=== PATIENT | male | born 1945 | race Caucasian/White ===

== ENCOUNTER 2018-10-22 05:01 | Emergency (ER) | payer OTHER ==
[2018-10-22 05:54] LABS: Urine Bacteria <20 /HPF (NONE SEEN); Urine Culture Reflex Order NOT NEEDED; Urine RBC NONE SEEN /HPF (NONE SEEN)
[2018-10-22 06:06] LABS: Urine Blood TRACE (NEG); Urine Glucose NEGATIVE (NEG); Urine Protein NEGATIVE (NEG)
--- NOTE | 2018-10-22 06:22 | ER ---
Nurse's Notes [facility] Name: Ty Morocho Age: 72 yrs Sex: Male : 1945 Arrival Date: 10/22/2018 Time: 05:02 Bed 6 Private MD: Ronald Briones T Diagnosis: Sciatica, left side;Essential (primary) hypertension;Disorder of prostate, unspecified Presentation: 10/22 05:17 Presenting complaint: Patient states: L leg pain x 3 days. Denies injury. Reports the aa1 pain also radiates into his L testicle when he urinates. Transition of care: patient was not received from another setting of care. Onset of symptoms was October 19, 2018. Risk Assessment: Do you want to hurt yourself or someone else? Patient reports no desire to harm self or others. Initial Sepsis Screen: Does the patient meet any 2 criteria? No. Patient's initial sepsis screen is negative. Does the patient have a suspected source of infection? No. Patient's initial sepsis screen is negative. Care prior to arrival: None. 05:17 Method Of Arrival: Ambulatory aa1 05:17 Acuity: DEREK 3 aa1 Triage Assessment: 05:20 General: Appears in no apparent distress. comfortable, Behavior is calm, cooperative, aa1 appropriate for age. Historical: - Allergies: 05:20 No Known Allergies; aa1 - Home Meds: 05:20 Flomax Oral [Active]; valsartan oral oral [Active]; carvedilol oral oral [Active]; aa1 - PMHx: 05:20 High Cholesterol; Hypertension; prostate cancer; aa1 - PSHx: 05:20 foot sx; aa1 - Immunization history:: Flu vaccine is not up to date. - Social history:: Smoking status: Patient/guardian denies using tobacco. - Ebola Screening: : No symptoms or risks identified at this time. Screenin:17 Abuse screen: Denies threats or abuse. Denies injuries from another. Nutritional rr5 screening: No deficits noted. Tuberculosis screening: No symptoms or risk factors identified. 06:52 Fall Risk None identified. jd3 Assessment: 05:17 General: Appears in no apparent distress. uncomfortable, Behavior is calm, cooperative, rr5 appropriate for age. Pain: Complains of pain in left leg Pain radiates to left testicle Pain currently is 1 out of 10 on a pain scale. Quality of pain is described as sharp, Pain began 2-3 days ago. Neuro: Level of Consciousness is awake, alert, obeys commands, Oriented to person, place, time, situation, Appropriate for age. 05:17 Cardiovascular: Capillary refill < 3 seconds Patient's skin is warm and dry. rr5 Respiratory: Airway is patent Respiratory effort is even, unlabored, Respiratory pattern is regular, symmetrical. GI: No signs and/or symptoms were reported involving the gastrointestinal system. : Reports pain in left testicle, with urination. EENT: No signs and/or symptoms were reported regarding the EENT system. Derm: Skin temperature is warm. Musculoskeletal: Capillary refill < 3 seconds, Range of motion: intact in all extremities. 05:17 Musculoskeletal: Reports pain in left leg Pain is 1 out of 10 on a pain scale. rr5 06:48 Reassessment: Patient appears in no apparent distress at this time. Patient and/or jd3 family updated on plan of care and expected duration. Pain level reassessed. Patient is alert, oriented x 3, equal unlabored respirations, skin warm/dry/pink. reported understanding of discharge instructions while doctor was at bedside. left before signing for discharge. even and steady gait upon discharge. Vital Signs: 05:20 BP 191 / 103; Pulse 71; Resp 18; Temp 98.2; Pulse Ox 98% on R/A; Weight 97.52 kg; aa1 Height 5 ft. 10 in. (177.80 cm); Pain 1/10; 05:42 BP 175 / 87; Pulse 66; Resp 17; Pulse Ox 99% on R/A; rr5 06:51 BP 155 / 78; Pulse 59; Resp 16 S; Pulse Ox 98% on R/A; Pain 0/10; jd3 05:20 Body Mass Index 30.85 (97.52 kg, 177.80 cm) aa1 ED Course: 05:02 Patient arrived in ED. ds1 05:02 Ronald Briones MD is Private Physician. ds1 05:16 Sage Irene RN is Primary Nurse. rr5 05:17 Patient has correct armband on for positive identification. Bed in low position. Call rr5 light in reach. Pulse ox on. NIBP on. 05:19 Triage completed. aa1 05:20 Arm band placed on right wrist. aa1 05:22 Flo Curran MD is Attending Physician. 05:39 Urine collected: clean catch specimen, clear, Amount Voided: 80mL. rr5 06:50 No provider procedures requiring assistance completed. Patient did not have IV access jd3 during this emergency room visit. Administered Medications: No medications were administered Outcome: 06:21 Discharge ordered by MD. 06:51 Discharged to home ambulatory, with family. jd3 06:51 Condition: stable 06:51 Discharge instructions given to patient, family, Instructed on discharge instructions, follow up and referral plans. Demonstrated understanding of instructions, follow-up care. 06:52 Patient left the ED. jd3 Signatures: Tammie Diaz RN RN aa1 Naina Colón ds1 Flo Curran MD MD gs Davies, Jonathon, RN RN jd3 Sage Irene RN RN rr5
--- NOTE | 2018-10-22 06:22 | EDPHYS ---
Physician Documentation [facility] Name: Ty Morocho Age: 72 yrs Sex: Male : 1945 Arrival Date: 10/22/2018 Time: 05:02 Bed 6 Private MD: Ronald Briones T ED Physician Flo Curran HPI: 10/22 06:15 This 72 yrs old Male presents to ER via Ambulatory with complaints of High gs Blood Pressure, Leg Pain. 06:15 The patient presents with pain. The complaints affect the left hip. Onset: The gs symptoms/episode began/occurred 2 day(s) ago. Modifying factors: the symptoms are aggravated by movement. Associated signs and symptoms: Pertinent negatives calf tenderness, numbness, rash, swelling, weakness. Severity of symptoms: At their worst the symptoms were severe, in the emergency department the symptoms have resolved, have improved, markedly. The patient has not experienced similar symptoms in the past. Historical: - Allergies: 05:20 No Known Allergies; aa1 - Home Meds: 05:20 Flomax Oral [Active]; valsartan oral oral [Active]; carvedilol oral oral [Active]; aa1 - PMHx: 05:20 High Cholesterol; Hypertension; prostate cancer; aa1 - PSHx: 05:20 foot sx; aa1 - Immunization history:: Flu vaccine is not up to date. - Social history:: Smoking status: Patient/guardian denies using tobacco. - Ebola Screening: : No symptoms or risks identified at this time. ROS: 06:15 : Positive for urinary frequency, improved with flomax usage. gs 06:15 All other systems are negative. Exam: 06:15 Head/Face: Normocephalic, atraumatic. Eyes: Pupils equal round and reactive to light, gs extra-ocular motions intact. Lids and lashes normal. Conjunctiva and sclera are non-icteric and not injected. Cornea within normal limits. Periorbital areas with no swelling, redness, or edema. ENT: Nares patent. No nasal discharge, no septal abnormalities noted. Tympanic membranes are normal and external auditory canals are clear. Oropharynx with no redness, swelling, or masses, exudates, or evidence of obstruction, uvula midline. Mucous membranes moist. Neck: Trachea midline, no thyromegaly or masses palpated, and no cervical lymphadenopathy. Supple, full range of motion without nuchal rigidity, or vertebral point tenderness. No Meningismus. Chest/axilla: Normal chest wall appearance and motion. Nontender with no deformity. No lesions are appreciated. Cardiovascular: Regular rate and rhythm with a normal S1 and S2. No gallops, murmurs, or rubs. Normal PMI, no JVD. No pulse deficits. Respiratory: Lungs have equal breath sounds bilaterally, clear to auscultation and percussion. No rales, rhonchi or wheezes noted. No increased work of breathing, no retractions or nasal flaring. Abdomen/GI: Soft, non-tender, with normal bowel sounds. No distension or tympany. No guarding or rebound. No evidence of tenderness throughout. Back: No spinal tenderness. No costovertebral tenderness. Full range of motion. Skin: Warm, dry with normal turgor. Normal color with no rashes, no lesions, and no evidence of cellulitis. MS/ Extremity: Pulses equal, no cyanosis. Neurovascular intact. Full, normal range of motion. Neuro: Awake and alert, GCS 15, oriented to person, place, time, and situation. Cranial nerves II-XII grossly intact. Motor strength 5/5 in all extremities. Sensory grossly intact. Cerebellar exam normal. Normal gait. 06:15 Constitutional: The patient appears alert, awake. Vital Signs: 05:20 BP 191 / 103; Pulse 71; Resp 18; Temp 98.2; Pulse Ox 98% on R/A; Weight 97.52 kg; aa1 Height 5 ft. 10 in. (177.80 cm); Pain 1/10; 05:42 BP 175 / 87; Pulse 66; Resp 17; Pulse Ox 99% on R/A; rr5 06:51 BP 155 / 78; Pulse 59; Resp 16 S; Pulse Ox 98% on R/A; Pain 0/10; jd3 05:20 Body Mass Index 30.85 (97.52 kg, 177.80 cm) aa1 MDM: 05:23 Patient medically screened. 06:15 Differential diagnosis: tendonitis, strain,sciatica. Data reviewed: vital signs, nurses gs notes. Counseling: I had a detailed discussion with the patient and/or guardian regarding: the historical points, exam findings, and any diagnostic results supporting the discharge/admit diagnosis, the presence of at least one elevated blood pressure reading (>120/80) during this emergency department visit. Response to treatment: the patient's symptoms have markedly improved after treatment, and as a result, I will discharge patient. 10/22 05:30 Order name: Urine Microscopic Only; Complete Time: 06:11 gs 10/22 05:50 Order name: Urine Dipstick--Ancillary (enter results); Complete Time: 06:11 mw2 10/22 05:30 Order name: Urine Dipstick-Ancillary (obtain specimen); Complete Time: 05:39 gs Administered Medications: No medications were administered Disposition: 10/22/18 06:21 Discharged to Home. Impression: Sciatica, left side, Essential (primary) hypertension, Disorder of prostate, unspecified. - Condition is Stable. - Discharge Instructions: Sciatica, Managing Your Hypertension. - Medication Reconciliation Form, Thank You Letter, Antibiotic Education, Prescription Opioid Use form. - Follow up: Private Physician; When: 2 - 3 days; Reason: Re-evaluation by your physician. Signatures: Dispatcher [employer] EDTammie Ramirez RN RN aa1 Flo Curran MD MD gs Davies, Jonathon, RN RN jd3 Corrections: (The following items were deleted from the chart) 06:52 06:21 10/22/2018 06:21 Discharged to Home. Impression: Sciatica, left side; Essential jd3 (primary) hypertension; Disorder of prostate, unspecified. Condition is Stable. Forms are Medication Reconciliation Form, Thank You Letter, Antibiotic Education, Prescription Opioid Use. Follow up: Private Physician; When: 2 - 3 days; Reason: Re-evaluation by your physician. gs
== END 2018-10-22 06:52 | disposition home or self-care (01) ==
LOC: ER 05:01
DX: M54.32 Sciatica, left side (principal); N42.9 Disorder of prostate, unspecified; I10 Essential (primary) hypertension
CPT/HCPCS: 81003; 81015; 99283

== ENCOUNTER 2018-10-22 22:20 | Emergency (ER) | payer OTHER ==
[2018-10-23] LABS: Basophils % 2.7 % (0-1.3); Eosinophils % 3.4 % (0-4.4); Hematocrit 50.2 % (39.6-49.0); Lymphocytes % 20.4 % (15.3-44.8); MPV 8.2 fL (7.6-11.3); Monocytes % 7.3 % (3.3-12.3); RBC Red Blood Cell Count 5.54 M/uL (4.33-5.43)
[2018-10-23] MEDS ORDERED: KETOROLAC 30 MG/ML INJ ONE (00:09)
[2018-10-23 00:15] LABS: Albumin 3.8 g/dL (3.4-5.0); Bilirubin Total 0.5 mg/dL (0.2-1.0); Potassium 3.8 mmol/L (3.5-5.1); Protein, Total 8.1 g/dL (6.4-8.2)
--- NOTE | 2018-10-23 03:24 | EDPHYS ---
Physician Documentation [facility] Name: Ty Morocho Age: 72 yrs Sex: Male : 1945 Arrival Date: 10/22/2018 Time: 22:21 Bed 15 Private MD: ED Physician Joe Gee HPI: 10/23 03:18 This 72 yrs old Male presents to ER via Ambulatory with complaints of Leg ps1 Pain. 03:18 patient has a history of prostate CA. Pt of Dr. Eddy. States that he was seen and ps1 evaluated earlier for same. Diagnosed with sciatica. Patient staets that his pain is localized in lower back and radiates down his leg to his knee. Pain rated as moderate. No urinary complaints, saddle anesthesia, fever, immunocompromise. . Historical: - Allergies: 10/22 23:04 No Known Allergies; aa1 - Home Meds: 23:04 carvedilol Oral [Active]; Flomax Oral [Active]; valsartan Oral [Active]; aa1 - PMHx: 23:04 High Cholesterol; Hypertension; Prostate Cancer; aa1 - PSHx: 23:04 foot sx; aa1 - Immunization history:: Flu vaccine is not up to date. - Social history:: Smoking status: Patient/guardian denies using tobacco. - Ebola Screening: : No symptoms or risks identified at this time. ROS: 10/23 03:18 Constitutional: Negative for fever, chills, and weight loss, Eyes: Negative for injury, ps1 pain, redness, and discharge, Cardiovascular: Negative for chest pain, palpitations, and edema, Respiratory: Negative for shortness of breath, cough, wheezing, and pleuritic chest pain, Abdomen/GI: Negative for abdominal pain, nausea, vomiting, diarrhea, and constipation, MS/Extremity: Negative for injury and deformity, Skin: Negative for injury, rash, and discoloration, Neuro: Negative for headache, weakness, numbness, tingling, and seizure. Back: Positive for pain with movement, radiated pain. Exam: 03:18 Constitutional: This is a well developed, well nourished patient who is awake, alert, ps1 and in no acute distress. Head/Face: Normocephalic, atraumatic. Eyes: Pupils equal round and reactive to light, extra-ocular motions intact. Lids and lashes normal. Conjunctiva and sclera are non-icteric and not injected. Cardiovascular: Regular rate and rhythm. No gallops, murmurs, or rubs. Normal PMI, no JVD. No pulse deficits. Respiratory: Lungs have equal breath sounds bilaterally, clear to auscultation and percussion. No rales, rhonchi or wheezes noted. No increased work of breathing, no retractions or nasal flaring. Abdomen/GI: Soft, non-tender, with normal bowel sounds. No distension or tympany. No guarding or rebound. No evidence of tenderness throughout. Skin: Warm, dry with normal turgor. Normal color with no rashes, no lesions, and no evidence of cellulitis. MS/ Extremity: Pulses equal, no cyanosis. Neurovascular intact. Full, normal range of motion. Neuro: Awake and alert, GCS 15, oriented to person, place, time, and situation. Cranial nerves II-XII grossly intact. Sensory grossly intact. 03:18 Back: pain, that is moderate, vertebral tenderness, is not appreciated, muscle spasm, is appreciated in the left low back. Vital Signs: 10/22 23:04 BP 173 / 92; Pulse 61; Resp 18; Temp 98.2; Pulse Ox 100% ; Weight 98.88 kg; Height 5 aa1 ft. 10 in. (177.80 cm); Pain 810; 10/23 01:15 BP 157 / 82; Pulse 57; Resp 16; Pulse Ox 100% on R/A; jb4 03:00 BP 136 / 85; Pulse 59; Resp 16; Pulse Ox 100% on R/A; jb4 10/22 23:04 Body Mass Index 31.28 (98.88 kg, 177.80 cm) aa1 MDM: 10/22 23:41 Patient medically screened. ps1 10/23 03:18 Data reviewed: vital signs, nurses notes, radiologic studies, and as a result, I will ps1 discharge patient. 10/22 23:42 Order name: CBC with Diff; Complete Time: 00:19 ps1 10/22 23:42 Order name: CMP; Complete Time: 00:19 ps1 10/22 23:42 Order name: CT Abd/Pelvis - IV Contrast Only ps1 Administered Medications: 00:30 Drug: TORadol - Ketorolac 15 mg Route: IVP; Site: right antecubital; jb4 01:00 Follow up: Response: No adverse reaction; Pain is decreased jb4 03:39 Drug: Reading 10 mg-325 mg 1 tabs Route: PO; jb4 03:40 Follow up: Response: Medication administered at discharge. jb4 Disposition: 10/23/18 03:24 Discharged to Home. Impression: Prostate cancer, Back pain, perirectal mass. - Condition is Stable. - Discharge Instructions: Colon Mass, Adult. - Prescriptions for tramadol 100 mg Oral tablet extended release 24 hr - take 1 tablet by ORAL route once daily; 15 tablet. Anaprox DS 550 mg Oral Tablet - take 1 tablet by ORAL route every 12 hours As needed; 20 tablet. Robaxin 500 mg Oral Tablet - take 2 tablet by ORAL route every 6 hours As needed; 40 tablet. Medrol (Gabriel) 4 mg Oral Tablets, Dose Pack - take 1 tablet by ORAL route as directed - follow package instructions; 1 packet. - Medication Reconciliation Form, Thank You Letter, Antibiotic Education, Prescription Opioid Use form. - Follow up: Junaid Eddy MD; Reason: Further diagnostic work-up, Recheck today's complaints, Re-evaluation by your physician. Follow up: Emergency Department; When: As needed; Reason: Fever > 102 F, Worsening of condition. - Problem is an ongoing problem. - Symptoms are unchanged. Signatures: Dispatcher [employer] EDMS Tammie Diaz RN RN aa1 Domenico Friedman RN RN jb4 Joe Gee MD MD ps1 Corrections: (The following items were deleted from the chart) 03:42 03:24 10/23/2018 03:24 Discharged to Home. Impression: Prostate cancer; Back pain; jb4 perirectal mass. Condition is Stable. Forms are Medication Reconciliation Form, Thank You Letter, Antibiotic Education, Prescription Opioid Use. Follow up: Junaid Eddy; Reason: Further diagnostic work-up, Recheck today's complaints, Re-evaluation by your physician. Follow up: Emergency Department; When: As needed; Reason: Fever > 102 F, Worsening of condition. Problem is an ongoing problem. Symptoms are unchanged. ps1
--- NOTE | 2018-10-23 03:24 | ER ---
Nurse's Notes [facility] Name: Ty Morocho Age: 72 yrs Sex: Male : 1945 Arrival Date: 10/22/2018 Time: 22:21 Bed 15 Private MD: Diagnosis: Prostate cancer;Back pain;perirectal mass Presentation: 10/22 23:00 Presenting complaint: Patient states: he was seen here early this morning for L leg aa1 pain and was diagnosed with sciatica but reports he is still having a lot of pain and is concerned it may be related to his hx of prostate cancer. Transition of care: patient was not received from another setting of care. Onset of symptoms was October 19, 2018. Risk Assessment: Do you want to hurt yourself or someone else? Patient reports no desire to harm self or others. Initial Sepsis Screen: Does the patient meet any 2 criteria? No. Patient's initial sepsis screen is negative. Does the patient have a suspected source of infection? No. Patient's initial sepsis screen is negative. Care prior to arrival: None. 23:00 Method Of Arrival: Ambulatory aa1 23:00 Acuity: DEREK 3 aa1 Triage Assessment: 23:04 General: Appears in no apparent distress. comfortable, Behavior is calm, cooperative, aa1 appropriate for age. Historical: - Allergies: 23:04 No Known Allergies; aa1 - Home Meds: 23:04 carvedilol Oral [Active]; Flomax Oral [Active]; valsartan Oral [Active]; aa1 - PMHx: 23:04 High Cholesterol; Hypertension; Prostate Cancer; aa1 - PSHx: 23:04 foot sx; aa1 - Immunization history:: Flu vaccine is not up to date. - Social history:: Smoking status: Patient/guardian denies using tobacco. - Ebola Screening: : No symptoms or risks identified at this time. Screenin:00 Abuse screen: Denies threats or abuse. Nutritional screening: No deficits noted. jb4 Tuberculosis screening: No symptoms or risk factors identified. Fall Risk None identified. Assessment: 23:00 General: Appears in no apparent distress. uncomfortable, Behavior is calm, cooperative, jb4 appropriate for age. Pain: Complains of pain in left leg Pain does not radiate. Pain currently is 10 out of 10 on a pain scale. Quality of pain is described as shooting, stabbing, Pain began 2-3 days ago. Is episodic, Alleviated by rest. Neuro: Level of Consciousness is awake, alert, obeys commands, Oriented to person, place, time, situation. Cardiovascular: Patient's skin is warm and dry. Respiratory: Airway is patent Respiratory effort is even, unlabored, Respiratory pattern is regular, symmetrical. GI: No signs and/or symptoms were reported involving the gastrointestinal system. : No signs and/or symptoms were reported regarding the genitourinary system. EENT: No signs and/or symptoms were reported regarding the EENT system. Derm: Skin is intact, Skin is pink, warm \T\ dry. Musculoskeletal: Circulation, motion, and sensation intact. Range of motion: intact in all extremities. 10/23 00:00 Reassessment: Patient appears in no apparent distress at this time. Patient and/or jb4 family updated on plan of care and expected duration. Pain level reassessed. Patient is alert, oriented x 3, equal unlabored respirations, skin warm/dry/pink. 01:00 Reassessment: Patient appears in no apparent distress at this time. Patient and/or jb4 family updated on plan of care and expected duration. Pain level reassessed. Patient is alert, oriented x 3, equal unlabored respirations, skin warm/dry/pink. Patient states feeling better. 01:53 Reassessment: patient complained of pain, getting worse. Dr Gee opted to wait for rv radiology report before giving another pain medicine. patient and family agreed. 02:25 Reassessment: Patient appears in no apparent distress at this time. Patient and/or jb4 family updated on plan of care and expected duration. Pain level reassessed. Patient is alert, oriented x 3, equal unlabored respirations, skin warm/dry/pink. 03:40 Reassessment: Patient appears in no apparent distress at this time. Patient and/or jb4 family updated on plan of care and expected duration. Pain level reassessed. Patient is alert, oriented x 3, equal unlabored respirations, skin warm/dry/pink. PT ambulated out of ED with steady gait, verbalized understanding of d/c and follow up instructions. Patient states feeling better. Vital Signs: 10/22 23:04 BP 173 / 92; Pulse 61; Resp 18; Temp 98.2; Pulse Ox 100% ; Weight 98.88 kg; Height 5 aa1 ft. 10 in. (177.80 cm); Pain 8/10; 10/23 01:15 BP 157 / 82; Pulse 57; Resp 16; Pulse Ox 100% on R/A; jb4 03:00 BP 136 / 85; Pulse 59; Resp 16; Pulse Ox 100% on R/A; jb4 10/22 23:04 Body Mass Index 31.28 (98.88 kg, 177.80 cm) aa1 ED Course: 10/22 22:21 Patient arrived in ED. ds1 22:48 Domenico Friedman, RN is Primary Nurse. jb4 23:00 Patient has correct armband on for positive identification. Bed in low position. Call jb4 light in reach. Side rails up X 1. Pulse ox on. NIBP on. 23:03 Triage completed. aa1 23:04 Arm band placed on right wrist. aa1 23:09 Joe Gee MD is Attending Physician. ps1 10/23 00:02 CT Abd/Pelvis - IV Contrast Only In Process Unspecified. EDMS 00:13 Radiology exam delayed due to lab results not completed at this time. (BUN/Creatinine). kw1 00:20 Initial lab(s) drawn, by me, sent to lab. Inserted saline lock: 20 gauge in right jb4 antecubital area, using aseptic technique. Blood collected. 03:24 Junaid Eddy MD is Referral Physician. ps1 03:41 No provider procedures requiring assistance completed. IV discontinued, intact, jb4 bleeding controlled, No redness/swelling at site. Administered Medications: 00:30 Drug: TORadol - Ketorolac 15 mg Route: IVP; Site: right antecubital; jb4 01:00 Follow up: Response: No adverse reaction; Pain is decreased jb4 03:39 Drug: Ralph 10 mg-325 mg 1 tabs Route: PO; jb4 03:40 Follow up: Response: Medication administered at discharge. jb4 Outcome: 03:24 Discharge ordered by . ps1 03:41 Discharged to home ambulatory, with family. jb4 03:41 Condition: stable 03:41 Discharge instructions given to patient, family, Instructed on discharge instructions, follow up and referral plans. medication usage, Demonstrated understanding of instructions, follow-up care, medications, Prescriptions given X 4. 03:42 Patient left the ED. jb4 Signatures: Dispatcher [employer] EDMS Tammie Diaz RN RN aa1 Naina Colón1 Domenico Friedman RN RN jb4 Joe Gee MD MD ps1 Xochitl Honeycutt kw1 Rickie Lopes RN RN rv
[2018-10-23] MEDS ORDERED: HYDROCODONE/APAP 10/325 TAB ONE (03:54)
--- NOTE | 2018-10-23 11:10 | RAD REPORT ---
EXAM DESCRIPTION: Abdomen Pelvis W Contrast CLINICAL HISTORY: 72 years Male hx of prostate CA, left leg pain TECHNIQUE: Contiguous axial images obtained through the abdomen and pelvis following intravenous con trast administration. Coronal and sagittal reformatted images provided. This CT exam was performed according to our departmental dose-optimization program, which includes on e or more of the following dose reduction techniques: automated exposure control, adjustment of the m A and/or kV according to patient size, and/or use of iterative reconstruction technique. COMPARISON: No prior exams provided for comparison. FINDINGS: The colon contains liquid stool a nonspecific finding which can be seen in mild colitis. T he descending colon demonstrate in a hostile pattern with proliferation of the submucosal fat, sugges tive of chronic inflammation. There is thickening of the rectum. No bowel obstruction, pneumatosis, o r free intraperitoneal air. On series 501 images 90-92, sagittal images 80-83, there is a lobulated mass measuring approximately 1.9 x 2.3 x 2.3 cm in the left posterolateral aspect of the rectal wall which extends through the adj acent rectal fat into the adjacent left puborectalis muscle. No visualized soft tissue gas or drainab le fluid collection. Minimal bibasilar atelectasis. The liver, biliary tree, gallbladder, pancreas, spleen, adrenal glands, and urinary bladder are xin l. Bilateral renal cysts. Mildly enlarged prostate with dystrophic calcifications. Normal urinary bladde r. Atherosclerosis without abdominal aortic aneurysm or retroperitoneal hemorrhage. No abdominal or pelv ic lymphadenopathy. Chronic degenerative changes throughout the spine and at both hips. No visualized aggressive osseous lesion. IMPRESSION: Findings suggestive of chronic distal colitis with possible minimal acute colitis. No paul wel obstruction or perforation. Thickening of the rectum with a 2.3 cm lobulated mass in the left posterolateral aspect of the rectal wall which extends through the adjacent perirectal fat into the adjacent left puborectalis muscle. D ifferential diagnosis includes a developing vs. prior fistula, primary neoplasm, and metastatic lesio n. Gastrointestinal evaluation recommended. No other acute findings. Electronically signed by: Malia Irizarry MD 10/23/2018 1:28 AM CDT Due to temporary technical issues with the PACS/Fluency reporting system, reports are being signed by the in house radiologist as a courtesy to ensure prompt reporting. The interpreting radiologist is f ully responsible for the content of the report.
== END 2018-10-23 03:42 | disposition home or self-care (01) ==
LOC: ER 22:20
DX: K62.9 Disease of anus and rectum, unspecified (principal); I10 Essential (primary) hypertension; E78.00 Pure hypercholesterolemia, unspecified; Z85.46 Personal history of malignant neoplasm of prostate
CPT/HCPCS: 85025; 36415; 80053; 74177; 96374; 99284; Q9967